=== PATIENT | male | born 1955 | race Caucasian/White ===

== ENCOUNTER 2018-07-13 10:47 | Observation (INO) ==
[2018-07-13] MEDS ORDERED: Ketorolac 30 MG/ML VIAL IVP ONE (11:01)
[2018-07-13 11:17] LABS: Basophils % 0.5 %; Eosinophils # 0.5 K/mcL (0.0-0.6); Eosinophils % 5.4 %; Hematocrit 43.4 % (37.5-50.1); Hemoglobin 14.4 g/dL (12.9-16.9); Immature Granulocytes % 0.4 % (0-4); Lymphocytes # 2.8 K/mcL (0.6-4.6); Lymphocytes % 33.1 %; Mean Corpuscular HGB Conc 33.2 g/dL (31.6-35.5); Mean Corpuscular Volume 84.3 fL (83.0-100.0); Mean Platelet Volume 9.6 fL (9.4-12.4); Monocytes # 0.8 K/mcL (0.0-1.3); Monocytes % 9.1 %; Neutrophils # 4.4 K/mcL (1.6-8.9); Platelet Count 239 K/mcL (140-400); Red Blood Count 5.15 M/mcL (4.19-5.50); Red Cell Distribution Width 13.6 % (11.5-14.5); Segmented Neutrophils % 51.5 %
[2018-07-13 11:36] LABS: BUN/Creatinine Ratio 18 (6-26); Blood Urea Nitrogen 19 mg/dL (8-23); Carbon Dioxide 28 mEq/L (23-29); Chloride 105 mEq/L (98-107); Glucose 106 mg/dL (70-105); Osmolality,Calculated 295 (280-300); Potassium 4.5 mEq/L (3.5-5.1); Sodium 141 mEq/L (136-145); eGFR For Non-African Americans > 60 (> 60)
[2018-07-13 11:37] LABS: Troponin I < 0.03 ng/mL (< 0.04)
[2018-07-13] MEDS ORDERED: Isovue-370 500 ML BOTTLE IVP ONE (11:40)
--- NOTE | 2018-07-13 11:47 | Emergency Department Note ---
Disposition Clinical Impression: Pulmonary embolism and infarction Disposition: Admitted As Inpatient Condition: Fair [facility]: [facility]Primary Care Provider[facility] - Forms: ED Satisfaction Letter Time of Disposition: 13:25 Chest Pain HPI - General Chief Complaint: ED Chest Pain Stated Complaint: CHEST PAIN Time Seen by Provider: 07/13/18 10:52 Source: patient Mode of arrival: private vehicle Limitations: no limitations Vital Signs Reviewed: Yes Nursing Notes Reviewed: Yes - History of Present Illness Pt complaint: chest pain Onset (ago): hour(s) (About 4 hours prior to my seeing him) Time: 07:00 Duration: constant Onset: awoke with symptoms Pain Location: left chest Severity: severe Severity scale (1-10): 8 Quality: sharp Pain Radiation: none Improves with: nothing Worsens with: inspiration Associated symptoms: Denies: nausea, vomiting, diaphoresis, dyspnea (Patient does not feel short of breath but says that his breathing is restricted because when he takes a breath his chest hurts) Treatments prior to arrival chest pain: none - Related Data Home Medications Medication Instructions Recorded Confirmed Lisinopril [Zestril] 20 mg PO DAILY 07/13/18 07/13/18 Allergies Allergy/AdvReac Type Severity Reaction Status Date / Time No Known Allergies Allergy Verified 07/13/18 10:56 All systems ED: reviewed and negative except as stated. Constitutional: Denies: fever, chills ENT ED: Denies: ear pain, throat pain, congestion Cardiovascular: Reports: chest pain. Denies: palpitations, dyspnea on exertion Respiratory: Denies: cough, dyspnea, wheezes Gastrointestinal: Denies: abdominal pain, nausea, vomiting, diarrhea Musculoskeletal: Denies: back pain Integumentary: Denies: rash Neurological: Denies: headache Chest Pain PMH - Past Medical History Medical history: Reports: hyperlipidemia, hypertension Psychiatric history: Reports: no psych history - Social History Smoking Status: Former smoker Alcohol use: Reports: rarely Drug use: Reports: none Physical Exam - General Limitations: no limitations General appearance: alert, in no apparent distress - Head Head exam: atraumatic, normocephalic, normal inspection - Eye Eye exam: Present: normal appearance, PERRL, EOMI. Absent: scleral icterus, conjunctival injection - ENT ENT exam: normal exam, normal oropharynx, mucous membranes moist, normal external ear exam - Neck Neck exam: Present: normal inspection, full ROM - Chest Chest inspection: Present: normal inspection, symmetric chest wall rise (But patient winces in discomfort when he takes that big breath.). Absent: tende rness - Respiratory Respiratory exam: Present: normal lung sounds bilaterally. Absent: respiratory distress, wheezes - Cardiovascular Cardiovascular exam: Present: regular rate, normal rhythm, normal heart sounds - Abdominal Exam Abdominal exam: Present: soft, Non-Tender, normal bowel sounds - Extremities Exam Extremities exam: Present: normal inspection. Absent: tenderness, pedal edema, calf tenderness - Back Exam Back exam: Present: full ROM. Absent: tenderness - Neurological Exam Neurological exam: Present: alert, oriented X3 - Psychiatric Psychiatric exam: Present: normal affect, normal mood - Skin Skin exam: Present: warm, dry. Absent: rash Course Course Narrative: Patient presents with complaint of chest pain that he woke up with from sleep. It is sharp and stabbing. It is localized in the anterior left chest. Hurts to breathe and to move. However I could not reproduce it on palpation of the chest wall or the costosternal junctions. He does not describe any other autonomic symptoms to make you think it is heart. Given the lack of reproducibility I cannot call a chest wall pain and have to consider other dangerous things like pulmonary embolism. I will do a workup on the patient and get him some medications for symptom relief. Disposition will be based on diagnostic results and reevaluation. - Reevaluation(s) Reevaluation #1: Labs came back normal except for the d-dimer which was pretty elevated. Cardiac workup is negative, rest of the labs are good. Given the positive d-dimer and my concern about lack of reproducibility on palpation, I am going to proceed wit h the CTA of the chest to evaluate for pulmonary embolism. Patient is feeling better and his vital signs are good and his pulse ox is good. Time: 11:51 Reevaluation #2: CT came back and although they could not see a discrete clot in the vasculature, he has a lingular lobe infarct which certainly implies pulmonary embolism. Also of concern is a large hilar lymph node on that left hand side. The patient's sister came in and she explained to me that their brother has a clotting disorder and she described factor V Leiden. She got tested for and was negative. The patient himself here has never been tested. So there are increased risk factors for PE based on those things as well. We are going to treat the patient as a PE. I spoke with Dr. Combs, the hospitalist and will admit the patient. We will start him on weight-based heparin. I counseled patient and family on diagnosis and expectations. Time: 13:25 Vital Signs Temperature 97.8 F 07/13/18 10:49 Pulse Rate 99 07/13/18 10:49 Respiratory Rate 18 07/13/18 10:49 Blood Pressure 190/85 07/13/18 10:49 O2 Sat by Pulse Oximetry 96 07/13/18 10:49 Temperature 97.8 F 07/13/18 10:49 Pulse Rate 84 07/13/18 11:50 Respiratory Rate 18 07/13/18 11:50 Blood Pressure 147/85 07/13/18 11:50 O2 Sat by Pulse Oximetry 97 07/13/18 11:50 Oxygen Delivery Oxygen Delivery Room Air Chest Pain - Lab Data Lab results reviewed: Yes I reviewed the patient's lab results. Result diagrams: 07/13/18 11:07 07/13/18 11:07 Lab Results 07/13/18 07/13/18 07/13/18 Range/Units 11:07 11:07 11:07 WBC 8.5 (4.3-11.1) K/mcL RBC 5.15 (4.19-5.50) M/mcL Hgb 14.4 (12.9-16.9) g/dL Hct 43.4 (37.5-50.1) % MCV 84.3 (83.0-100.0) fL MCH 28.0 (28.0-33.3) pg MCHC 33.2 (31.6-35.5) g/dL RDW 13.6 (11.5-14.5) % Plt Count 239 (140-400) K/mcL MPV 9.6 (9.4-12.4) fL Immature Gran % 0.4 (0-4) % Seg Neutrophils % 51.5 % Lymphocytes % 33.1 % Monocytes % 9.1 % Eosinophils % 5.4 % Basophils % 0.5 % Neutrophils # 4.4 (1.6-8.9) K/mcL Lymphocytes # 2.8 (0.6-4.6) K/mcL Monocytes # 0.8 (0.0-1.3) K/mcL Eosinophils # 0.5 (0.0-0.6) K/mcL Basophils # 0.0 (0.0-0.2) K/mcL D-Dimer 1143 H (0-500) ng/mLFEU Sodium 141 (136-145) mEq/L Potassium 4.5 (3.5-5.1) mEq/L Chloride 105 (98-107) mEq/L Carbon Dioxide 28 (23-29) mEq/L BUN 19 (8-23) mg/dL Creatinine 1.05 (0.70-1.30) mg/dL Est GFR ( Amer) > 60 (> 60) Est GFR (Non-Af Amer) > 60 (> 60) BUN/Creatinine Ratio 18 (6-26) Glucose 106 H (70-105) mg/dL Calculated Osmolality 295 (280-300) Calcium 9.0 (8.6-10.3) mg/dL Troponin I < 0.03 (< 0.04) ng/mL - Radiology Data Radiology results reviewed: Yes I reviewed the patient's radiology results. - EKG Data EKG attestation: Yes I reviewed and interpreted this EKG. EKG results narrative: Twelve-lead EKG performed at 10:50 AM. Ordered, reviewed and interpreted by ED physician shows sinus rhythm at a rate of 98. Normal axis. Good hour progressi on across the precordium. No acute ischemic changes. Intervals within normal limits.
[2018-07-13] MEDS ORDERED: *HR* Heparin 5,000 UNIT/ML VIAL IVP ONE ×2 (13:22→13:48)
[2018-07-13] MEDS ORDERED: *HR* Heparin 5,000 UNIT/ML VIAL IVP PRN ×4 (13:22→13:48)
[2018-07-13] MEDS ORDERED: Heparin 25,000 UNIT/250 ML D5W 25,000 UNIT/250 ML IV.SOLN IVC SCH (13:30)
--- NOTE | 2018-07-13 13:32 | Electrocardiograph Report ---
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
[2018-07-13 13:47] LABS: Prothrombin Time 11.7 Seconds (9.4-12.1)
[2018-07-13] MEDS ORDERED: Naloxone 0.4 MG/ML INJ IVP PRN (13:48)
[2018-07-13 13:50] LABS: Activated Partial Thrombo Time 30.8 Seconds (26.0-36.0)
--- NOTE | 2018-07-13 18:01 | Internal Med History&Physical ---
Date of Encounter: 07/13/18 Time of Encounter: 17:30 Assessment and Plan (1) Pulmonary embolism and infarction Current visit: Yes Status: Acute Presumed. He has been started on heparin drip. Venous Doppler of legs will be ordered. Hypercoagulable profile has been ordered. (2) Hypertension Current visit: Yes Status: Chronic Continue lisinopril and monitor blood pressure Qualifiers: Hypertension type: essential hypertension Qualified Code(s): I10 - Essential (primary) hypertension Internal Medicine - H&P: HPI Chief complaint: Chest pain and dyspnea Admitted From: Emergency Dept Plans for Post Hospital Care: Home History of present illness: Mr. Peralta is a 63 year old male who came to emergency room complaining of sudden onset of chest pain and dyspnea approximately 0700 while at leisure. Approximately 10:15 the dyspnea worsened and the pain became more sharp. He came to emergency room was evaluated. D-dimer was found to be elevated at 1143. Chest CTA showed no obvious PE but there was a wedge-shaped area of groundglass consolidation within the periphery of the lingula which had appearance of pulmonary infarct. He was started on heparin drip for presumptive PE and [facility]. He denies past DVT or pulmonary embolus. He has had no leg pain, swelling, or prolonged immobility. He has had no malignancies. He reports a brother of pulmonary embolism with factor V Leiden deficiency. Cardiovascular history is pertinent for hypertension but he denies NC or heart failure. Past Med Surg Social Fam HX - Past Medical History Medical history: hyperlipidemia, hypertension Psychiatric history: no psych history - Past Surgical History Surgical History: appendectomy, tonsilectomy Additional surgical history: ear surgery, jaw surgery - Social History Smoking Status: Former smoker Alcohol use: rarely Drug use: none - Family History Mother Living Status: Hx Family Cardiac Disorders: No Hx Family Respiratory Disorders: No Hx Family Cancer: No Hx Family GI Disorders: Yes (Cirrhosis) Hx Family Genitourinary Disorders: No Hx Family Endocrine Disorder: Yes (Diabetes) Hx Family Musculoskeletal Disorders: Yes Hx Family Neuromuscular Disorders: No Hx Family Neurologic Disorders: No Hx Family HEENT Disorders: No Hx Family Autoimmune Disorders: No Hx Family Reproductive Disorders: No Hx Family Psychosocial Disorders: No Hx Family Medical Disorders: No Internal Medicine - H&P: Meds Lisinopril [Zestril] 20 mg PO DAILY 07/13/18 [History] Allergy/AdvReac Type Severity Reaction Status Date / Time No Known Allergies Allergy Verified 07/13/18 10:56 All Systems PM: A 10-system review of systems was performed and is negative for pertinent findings except as documented above in the HPI. Review of systems: Gen.: He states his weight has been stable for several months Cardiovascular: As per history of present illness Respiratory: He smoked from age [age] up to one and half packs per day. He is not had PFTs and does not use home oxygen. He has not been tested for sleep apnea. GI: He denies disorders of his liver gallbladder or exocrine pancreas : He denies hematuria dysuria or kidney stones Neurologic: He denies large distribution strokes or seizures. Endocrine: He has hyperlipidemia but denies diabetes or thyroid disease Hematology/oncology: He denies blood disorders cancers or anemia Psychiatric: He denies anxiety depression or other mental health issues [place] skeletal: He had corrective mandibular surgery remotely. He denies arthritis gout or other bone joint or muscle disorders. - Constitutional Vitals: Temp Pulse Resp BP Pulse Ox 98.0 F 84 17 132/75 96 07/13/18 15:35 07/13/18 15:35 07/13/18 15:35 07/13/18 15:35 07/13/18 15:35 Exam: Gen.: He is a well-developed well-nourished male resting comfortably in bed who appears in no acute distress at present time HEENT: Head is atraumatic and normocephalic. Eyes: EOMI. There is no scleral icterus. Mouth: Mucosa is moist. Neck: Supple and nontender. There is no thyromegaly or adenopathy noted. Heart: Regular without murmurs gallops or ectopics Lungs: No wheezes or crackles are heard. No pleural friction rubs are heard. Abdomen: Soft and nontender. No masses or guarding are noted. Extremities: There is no cyanosis edema or clubbing noted. Dorsalis pedis and posterior tibial pulses are 1-2 over 2 bilaterally. Neurologic: Mental status: He is talkative and a good historian. Cranial nerves: Smile is symmetric. Forehead wrinkles bilaterally. Tongue protrudes midline. EOMI. Motor: There is no pronator drift. Cerebellar: Finger to nose is intact bilaterally. Skin: Warm and dry Internal Med - H&P Results - Labs CBC & Chem 7: 07/13/18 11:07 07/13/18 11:07 Labs: Short CBC 07/13/18 Range/Units 11:07 WBC 8.5 (4.3-11.1) K/mcL Hgb 14.4 (12.9-16.9) g/dL Hct 43.4 (37.5-50.1) % Plt Count 239 (140-400) K/mcL Neutrophils # 4.4 (1.6-8.9) K/mcL BMP 07/13/18 11:07 Sodium 141 Potassium 4.5 Chloride 105 Carbon Dioxide 28 BUN 19 Creatinine 1.05 Glucose 106 H Calcium 9.0 Cardiac Enzymes 07/13/18 Range/Units 11:07 Troponin I < 0.03 (< 0.04) ng/mL - Impressions ITS Impressions Chest X-Ray 07/13/18 10:53 IMPRESSION: Limited low lung volume portable chest x-ray with right basilar airspace disease, nonspecific but most likely atelectasis. D/ / Celestino Colbert MD / Celestino Colbert MD Interpreting Provider: Celestino Colbert MD Chest CTA 07/13/18 11:40 IMPRESSION: There is no pulmonary embolism identified. There is however a wedge-shaped area of ground-glass consolidation within the periphery of the lingula which has the appearance of a pulmonary infarct. This raises the possibility of a pulmonary embolism not evident on this exam. Lower extremity Doppler ultrasound is recommended to exclude a lower extremity DVT. Alternate considerations include a pneumonia or bronchoalveolar cell carcinoma, but considered less likely. Enlarged left hilar lymph node measuring 1.8 x 1.9 x 2.1 cm. This is an indeterminate finding and concerning for possible underlying malignancy. A follow-up CT of the chest in 4 weeks is recommended to ensure resolution of this finding. If this finding does not resolve, tissue sampling may be warranted. D/ / 07/13/2018 13:02:26 Jonas Reid MD / xena Interpreting Provider: Jonas Reid MD - VTE Reasons for not Prescribing Prophylaxis: Not indicated-Anticoagulated or INR therapeutic
[2018-07-13] MEDS: Heparin 25,000 UNIT/250 ML D5W 25,000 UNIT/250 ML IV.SOLN IVC SCH (19:00)
[2018-07-14 03:37] LABS: Basophils % 0.4 %; Eosinophils # 0.5 K/mcL (0.0-0.6); Eosinophils % 6.6 %; Hematocrit 40.8 % (37.5-50.1); Hemoglobin 13.6 g/dL (12.9-16.9); Immature Granulocytes % 0.3 % (0-4); Lymphocytes # 3.2 K/mcL (0.6-4.6); Lymphocytes % 40.6 %; Mean Corpuscular HGB Conc 33.3 g/dL (31.6-35.5); Mean Corpuscular Hemoglobin 27.8 pg (28.0-33.3); Mean Corpuscular Volume 83.4 fL (83.0-100.0); Mean Platelet Volume 9.3 fL (9.4-12.4); Monocytes # 0.6 K/mcL (0.0-1.3); Monocytes % 7.3 %; Neutrophils # 3.6 K/mcL (1.6-8.9); Platelet Count 216 K/mcL (140-400); Red Blood Count 4.89 M/mcL (4.19-5.50); Red Cell Distribution Width 13.7 % (11.5-14.5); Segmented Neutrophils % 44.8 %
[2018-07-14 03:57] LABS: Alanine Aminotransferase 34 Units/L (7-52); Albumin 3.9 g/dL (3.5-5.7); Albumin/Globulin Ratio 1.2 (1.1-2.2); Alkaline Phosphatase 78 Units/L (34-104); Aspartate Amino Transferase 22 Units/L (13-39); BUN/Creatinine Ratio 20 (6-26); Bilirubin,Total 0.7 mg/dL (0.3-1.0); Blood Urea Nitrogen 20 mg/dL (8-23); Calcium 8.8 mg/dL (8.6-10.3); Carbon Dioxide 25 mEq/L (23-29); Chloride 105 mEq/L (98-107); Globulin 3.2 g/dL (2.4-3.5); Glucose 111 mg/dL (70-105); Osmolality,Calculated 293 (280-300); Potassium 4.6 mEq/L (3.5-5.1); Sodium 140 mEq/L (136-145); Total Protein 7.1 g/dL (6.4-8.9); eGFR For Non-African Americans > 60 (> 60)
[2018-07-14 04:10] LABS: Thyroid Stimulating Hormone 5.049 mcIU/mL (0.340-5.600)
[2018-07-14] MEDS ORDERED: Lisinopril 20 MG TABLET PO SCH (09:00)
[2018-07-14] MEDS: Heparin 25,000 UNIT/250 ML D5W 25,000 UNIT/250 ML IV.SOLN IVC SCH (10:00)
[2018-07-14 10:51] VITALS: BP 128/68
--- NOTE | 2018-07-14 11:03 | Discharge Summary ---
Orders not resulted at time of discharge: Pending orders 07/13/18 20:12 Factor V Leiden Routine Lupus Anticoagulant Panel Routine Protein C, Functional Routine Protein S, Free Routine Prothrombin [id number] Mutation Routine 07/14/18 15:00 Heparin anti-factor XA UFH [COAG] Routine 07/14/18 21:00 Heparin anti-factor XA UFH [COAG] Routine 07/15/18 03:00 Heparin anti-factor XA UFH [COAG] Routine Date of Encounter: 07/14/18 Time of Encounter: 10:55 - Discharge Diagnosis (1) Pulmonary embolism and infarction Priority: Primary Status: Acute (2) Hypertension Priority: Secondary Status: Chronic Qualifiers: Hypertension type: essential hypertension Qualified Code(s): I10 - Essential (primary) hypertension Hospital course: Mr. Peralta is a 63 year old male who came to emergency room complaining of sudden onset of chest pain and dyspnea approximately 0700 while at leisure. Approximately 10:15 the dyspnea worsened and the pain became more sharp. He came to emergency room and was evaluated. D-dimer was found to be elevated at 1143. Chest CTA showed no obvious PE but there was a wedge-shaped area of groundglass consolidation within the periphery of the lingula which had appearance of pulmonary infarct. He was started on heparin drip for presumptive PE and admitted to [facility] floor for ongoing care needs. Initial orders were written by the emergency room physician. I saw him the afternoon of July 13 and performed a history and physical. Bilateral lower extremity venous ultrasound was done without evidence of DVT seen. Hypercoagulable workup was ordered with results pending at time of discharge. On July 14 the patient felt improved with minimal residual chest pain and dyspnea. I explained to him again that there was suggestive but inconclusive evidence of pulmonary embolism. We agreed it was reasonable for him to be treated with therapeutic dose OAC. He was started on Xarelto 15 mg twice a day. His PCP can reassess after reviewing hypercoagulable workup results. He will follow with his PCP at the [facility] within 1 week. - Time Spent with Patient Total time spent providing and/or coordinating discharge services: - Discharge Medications Prescriptions: New Rivaroxaban [Xarelto] 15 mg PO BID #42 tablet Continue Lisinopril [Zestril] 20 mg PO DAILY Home Medications: Lisinopril [Zestril] 20 mg PO DAILY 07/13/18 [History] Rivaroxaban [Xarelto] 15 mg PO BID #42 tablet 07/14/18 [Rx] Allergies/Adverse Reactions: Allergy/AdvReac Type Severity Reaction Status Date / Time No Known Allergies Allergy Verified 07/13/18 10:56 Date of admission: 07/13/18 13:42 Primary care physician: PCP FAN - Constitutional Vitals: Temp Pulse Resp BP Pulse Ox 98.4 F 88 18 128/68 93 07/14/18 10:50 07/14/18 10:50 07/14/18 10:50 07/14/18 10:50 07/14/18 10:50 - Patient Status Disposition: Home, Self-Care Condition: Fair - Discharge Instructions Follow Up With: FAN,PCP [Primary Care Provider] - 1 week - Diet and Activity Activity: resume usual activities as tolerated Diet: advance to your usual diet - VTE Reasons for not Prescribing Prophylaxis: Not indicated-Anticoagulated or INR therapeutic
[2018-07-14] MEDS ORDERED: *HR* Rivaroxaban 15 MG TABLET PO ONE (12:30)
[2018-07-16 20:31] LABS: APTT (LE Anticoag) 128 sec (32-48); Diluted Russell Viper Venom 37 sec (33-44); LE APTT D Heparin Neutralized 43 sec (32-48); LE Coag Reptilase Time 17.8 sec (<=21.9); PT (LE-Anticoag) 12.9 sec (12.0-15.5); Thrombin Time >150.0 sec (14.7-19.5)
[2018-07-18 15:06] LABS: Prothrombin G20210A Specimen WHOLE BLOOD
[2018-07-19 08:31] LABS: Prothrombin G20210A Mut Result NEGATIVE
[2018-07-19 23:31] LABS: FACV Specimen WHOLE BLOOD
[2018-07-20 09:36] LABS: Fac V Leiden R506Q Mut Result NEGATIVE
== END 2018-07-14 14:55 | disposition home or self-care (01) ==
LOC: INPPIK 10:47 → EMEROOPIK 10:47 → INPPIK 14:02
PROVIDERS: ADMIT Internal Medicine; ATTEND Internal Medicine